=== PATIENT | female | born 1990 | race Caucasian/White ===

== ENCOUNTER → 2016-12-10 | Outpatient (CLI) | payer OTHER ==
[2016-12-10 11:41] LABS: CH 31.2; HCT 38.5 % (34.0-46.0); HDW 2.62; HGB 12.5 gm/dL (11.4-16.0); MCH 30.7 pg (25.0-35.0); MCHC 32.3 g/dL (31.0-37.0); Mean Platelet Volume 6.7; RBC 4.06 m/uL (3.80-5.40); WBC 8.9 k/uL (3.8-10.6)
== END | disposition home or self-care (01) ==
LOC: LABWHC1 10:02
PROVIDERS: ATTEND Obstetrics & Gynecology
DX: Z34.82 Encounter for supervision of other normal pregnancy, second trimester (principal)
CPT/HCPCS: 36415; 82950; 85027

== ENCOUNTER 2017-01-03 10:54 | Outpatient (CLI) | payer OTHER | END 2017-01-03 11:50 | disposition home or self-care (01) | LOC: FBPOP 10:54 | PROVIDERS: ATTEND Obstetrics & Gynecology | DX: O99.89 Other specified diseases and conditions complicating pregnancy, childbirth and the puerperium (principal); R10.84 Generalized abdominal pain; Z3A.30 30 weeks gestation of pregnancy | CPT/HCPCS: 59025; 84112; G0463; 99213 ==

== ENCOUNTER → 2017-01-22 | Outpatient (CLI) | payer OTHER ==
--- NOTE | 2017-01-22 14:38 | US ---
EXAMINATION TYPE: US OB anatomy transabd DATE OF EXAM: 01/22/2017 2:21 PM COMPARISON: US in PACS HISTORY: LGA TECHNIQUE: Transabdominal (TA) EXAM MEASUREMENTS: GESTATIONAL AGE / DATING Physician Established: (32 weeks/5 days) EDC: 03/14/2017 Dates by LMP: Dates by First Scan: (32 weeks/5 days) EDC: 03/14/2017 Dates by Current Scan for: (33 weeks/5 days) EDC: 03/07/2017 SURVEY IUP: Single PLACENTA: Fundal PREVIA: No previa ADIN: 16.9 cm Normal CERVICAL LENGTH (transabdominal: norm > 3.0cm): 3.2 cm BIOMETRY PRESENTATION: Vertex BPD: 8.7 cm 35 weeks / 0 days HC: 31.9 cm 35 weeks / 6 days AC: 29.7 cm 33 weeks / 5 days FL: 6.3 cm 32 weeks / 5 days ESTIMATED WEIGHT IN GRAMS: 2273 grams ESTIMATED WEIGHT IN LBS/OZS: 5 lbs. 0 oz. WEIGHT PERCENTAGE BASED ON ESTABLISHED DATE: 74 % HC/AC: 1.07 Normal FL/AC: 21 Normal HEART RATE: 131 bpm RHYTHM: Normal ANATOMY SEEN (within normal limits): Stomach Situs Nose / Lips Diaphragm Kidneys (bilateral) Bladder Cord Insert Three Vessel Cord Longitudinal Spine Transverse Spine ANATOMY SEEN (does not appear within normal limits): * Lateral Vent (< 1 cm) 1.2 cm * Cisterna Magna (< 1.1 cm) 1.2 cm ANATOMY NOT SEEN: * Cerebellum (varies with age) cm Choroid Plexus (bilateral) Midline Falx Cavus Septi Pellucidi Four Chamber Heart Outflow tracts: LVOT/RVOT Arms (bilateral) Legs (bilateral) IMPRESSION: Single, viable IUP/ Ventricles and Cisterna Magna dilated
== END ==
LOC: RADUSWWP 14:00
PROVIDERS: ATTEND Obstetrics & Gynecology
DX: O36.63X0 Maternal care for excessive fetal growth, third trimester, not applicable or unspecified (principal)
CPT/HCPCS: 76811

== ENCOUNTER 2017-02-17 03:55 | Inpatient (IN) | payer OTHER ==
[2017-02-17] MEDS ORDERED: TERBUTALINE 1 MG/ML VIAL SQ PRN (04:14)
[2017-02-17] MEDS ORDERED: LIDOCAINE 1% (PF) 10 MG/ML (30 ML SDV) SQ PRN (04:14)
[2017-02-17] MEDS ORDERED: METHYLERGONOVINE 0.2 MG/ML 1 ML AMP IM PRN (04:14)
[2017-02-17] MEDS ORDERED: AMPICILLIN 2,000 MG in SODIUM CHLORIDE 0.9% 100 ML IVPB STA (04:14)
[2017-02-17] MEDS ORDERED: CARBOPROST TROMETHAMINE 250 MCG/ML 1 ML AMP IM PRN (04:14)
[2017-02-17] MEDS ORDERED: OXYTOCIN 10 UNIT/ML 1 ML VIAL IM PRN (04:14)
[2017-02-17] MEDS ORDERED: LACTATED RINGERS 1,000 ML IV SCH ×2 (04:15)
[2017-02-17 04:24] LABS: Basophils % (A) 0 %; CH 30.3; CHCM 33.9; Eosinophils # (A) 0.2 k/uL (0-0.7); Eosinophils % (A) 2 %; HCT 37.2 % (34.0-46.0); HDW 2.84; HGB 12.7 gm/dL (11.4-16.0); Luc # (Auto) 0.19; Luc % (Auto) 2; Lymphocytes % (A) 18 %; MCH 30.6 pg (25.0-35.0); MCHC 34.1 g/dL (31.0-37.0); MCV 89.8 fL (80.0-100.0); Mean Platelet Volume 7.2; Monocytes # (A) 0.6 k/uL (0-1.0); Monocytes % (A) 5 %; Neutrophils # (A) 8.5 k/uL (1.3-7.7); Neutrophils % (A) 74 %; RBC 4.14 m/uL (3.80-5.40); RDW 13.2 % (11.5-15.5); WBC 11.5 k/uL (3.8-10.6); WBC (Perox) 11.69
[2017-02-17] MEDS ORDERED: SODIUM CHLORIDE 0.9% 100 ML BAG ONE (05:15)
[2017-02-17] MEDS ORDERED: BUPIVACAINE (PF) 0.25% 30 ML VIAL ONE (05:15)
[2017-02-17] MEDS ORDERED: fentaNYL (PF) 50 MCG/ML 5 ML AMP ONE (05:15)
[2017-02-17] MEDS ORDERED: ZOLPIDEM 5 MG TAB PO PRN (05:55)
[2017-02-17] MEDS ORDERED: WITCH HAZEL 1 EACH MED..PAD TOPICAL PRN (05:55)
[2017-02-17] MEDS ORDERED: HYDROCORTISONE 2.5% RECTAL CREAM 30 GM TUBE RECTAL PRN (05:55)
[2017-02-17] MEDS ORDERED: diphenhydrAMINE 50 MG CAP PO PRN (05:55)
[2017-02-17] MEDS ORDERED: ACETAMINOPHEN TAB 325 MG TAB PO PRN (05:55)
[2017-02-17] MEDS ORDERED: Acetaminophen-Codeine 300-30mg TAB PO PRN (05:55)
[2017-02-17] MEDS ORDERED: LANOLIN CREAM 5 GM TUBE TOPICAL PRN (05:55)
[2017-02-17] MEDS ORDERED: diphenhydrAMINE 50 MG/ML 1 ML VIAL IVP PRN ×2 (05:55)
[2017-02-17] MEDS ORDERED: diphenhydrAMINE 25 MG CAP PO PRN (05:55)
[2017-02-17] MEDS ORDERED: SIMETHICONE 80 MG CHEWABLE PO PRN (05:55)
[2017-02-17] MEDS ORDERED: BENZOCAINE/MENTHOL SPRAY 1 GM/SPRAY AEROSOL TOPICAL PRN (05:55)
--- NOTE | 2017-02-17 06:00 | P.HPOB ---
History of Present Illness H&P Date: 02/17/17 Chief Complaint: IUP 36 weeks SAMRA is a 26-year-old at 36 weeks gestation who arrives following spontaneous rupture membranes. She is dilated to 6 cm at presentation. She began having contractions earlier this evening they progressed to fully worse ultimately having spontaneous rupture membranes at about 345 morning. Fluid is noted be clear. Her course of incompetent by early diagnosis of chlamydia which was verified treated with resolution. She had some pain issues but generally speaking was unremarkable up until 34 weeks when an ultrasound showed mild dilation of lateral ventricles. She was sent to high risk and [facility] did evaluate her and repeated the ultrasound. The dilated ventricles were noted. However at that time they did not believe that she be delivered at a high-risk Center and she was returned to our care. Discussion with patient yesterday was done on possible delivery at high risk versus locally. However with her dilation to 6 she is not stable for any type of transfer therefore we'll plan to deliver here and notify pediatrics. Pertinent labs did include A+ blood type Rh antibody negative rubella immune, hepatitis B surface antigen and RPR were both negative. On physical exam vital signs are stable and afebrile. Heart regular, lungs clear, extremities without pain. heart tones were in the 130s 2050s are reactive. Assessment intrauterine at 36 weeks. Plan expect spontaneous vaginal delivery. Antibiotics have been initiated for group B strep Past Medical History Past Medical History: No Reported History History of Any Multi-Drug Resistant Organisms: None Reported Past Surgical History: No Surgical Hx Reported Past Anesthesia/Blood Transfusion Reactions: No Reported Reaction Past Psychological History: No Psychological Hx Reported Smoking Status: Never smoker Past Alcohol Use History: None Reported Past Drug Use History: None Reported Medications and Allergies Home Medications Medication Instructions Recorded Confirmed Type No Known Home Medications [No 08/16/16 01/03/17 History Known Home Medications] Allergies Allergy/AdvReac Type Severity Reaction Status Date / Time No Known Allergies Allergy Verified 02/17/17 04:13 Exam Osteopathic Statement: *. No significant issues noted on an osteopathic structural exam other than those noted in the History and Physical/Consult. - Vital Signs Vital signs: Vital Signs Temp Pulse Resp BP 02/17/17 04:13 97.0 F L 88 16 131/63 Intake and Output 02/16/17 02/16/17 02/17/17 14:59 22:59 06:59 Other: Weight 95.708 kg Patient Weight 02/17/17 06:59 Weight 95.708 kg - OBG Physical Exam Abdomen: bowel sounds normal, no diffuse tenderness, no bruit present, no guarding noted, no hepatomegaly, no splenomegaly, no mass Vulva: both: normal Vagina: normal moisture, no discharge Cervix: no lesion, no discharge Uterus: normal size, normal contour Results Result Diagrams: 02/17/17 04:15 Abnormal Lab Results - Last 24 Hours (Table) 02/17/17 Range/Units 04:15 WBC 11.5 H (3.8-10.6) k/uL Neutrophils # 8.5 H (1.3-7.7) k/uL
--- NOTE | 2017-02-17 06:02 | P.PROBDLV ---
Vaginal Delivery Note - . Vaginal Delivery Note: Patient progressed to complete and pushing with spontaneous vaginal delivery of a viable female over an intact perineum. Following delivery of the head , a nuchal cord 2 was noted and was noted to be relatively tight therefore patient was asked to stop pushing and nuchal cord was reduced 2. Once this was accomplished the remainder the baby was delivered and baby's mouth and nares were bulb suctioned. Baby was then placed on mother's abdomen where the umbilical cord was clamped cut usual fashion an nursery personnel was present to assume care. Placenta was then allowed to pulsate for 30 seconds and then was clamped and cut. Placenta was then delivered intact and Pitocin was added to the IV. scores were 8 and 9 at one and 5 minutes respectively and the weight is however pending. Both mother and baby however currently appear stable. Pediatrics will need to be notified of dilated ventricles for further workup.
[2017-02-17] MEDS ORDERED: AMPICILLIN 1,000 MG in SODIUM CHLORIDE 0.9% 50 ML IVPB SCH (08:16)
[2017-02-17] MEDS: SENNOSIDES-DOCUSATE SODIUM 1 EACH TAB PO SCH ×2 (09:36→20:06)
[2017-02-17] MEDS: IBUPROFEN 600 MG TAB PO PRN ×2 (13:25→23:48)
[2017-02-17] MEDS: Acetaminophen-Codeine 300-30mg TAB PO PRN ×2 (15:30→20:06)
[2017-02-18] MEDS: Acetaminophen-Codeine 300-30mg TAB PO PRN ×4 (02:11→20:42)
[2017-02-18] MEDS: IBUPROFEN 600 MG TAB PO PRN ×3 (05:55→22:49)
[2017-02-18] MEDS: SENNOSIDES-DOCUSATE SODIUM 1 EACH TAB PO SCH ×2 (10:49→19:24)
--- NOTE | 2017-02-18 17:01 | P.PNOBGVD ---
Subjective - Subjective Principal diagnosis: day 1 Interval history: Overall Paulette is doing very well. She is ambulating, voiding and she is tolerating her diet. She voices no complaint. Baby is in special care nursery. We'll continue to monitor patient for now. Vital signs are stable and afebrile. Heart regular, lungs clear, extremities without pain. Abdomen is soft uterus is firm. Assessment day 1. Plan discharge to home tomorrow [place]: in NICU (For evaluation of group B strep due to only 1 treatment during labor) Objective - Latest Vital Signs Latest vital signs: Vital Signs Temp Pulse Resp BP Pulse Ox 02/18/17 08:00 97.6 F 69 18 123/81 02/17/17 23:42 97.8 F 71 18 128/76 02/17/17 20:00 97.9 F 71 18 113/81 100 Intake and Output 02/18/17 02/18/17 02/18/17 06:59 14:59 22:59 Other: # Voids 2 - Exam Lungs: bilateral: normal Chest: Normal S1, Normal S2 Extremities: Present: normal Abdomen: Present: normal appearance, soft Uterus: Present: normal, firm
[2017-02-19] MEDS: Acetaminophen-Codeine 300-30mg TAB PO PRN ×2 (00:32→10:07)
[2017-02-19] MEDS: IBUPROFEN 600 MG TAB PO PRN ×2 (07:35→13:45)
[2017-02-19] MEDS: SENNOSIDES-DOCUSATE SODIUM 1 EACH TAB PO SCH (10:08)
[2017-02-19 16:47] VITALS: BP 121/67; PULSE 76; RESP 17; TEMP 97
--- NOTE | 2017-04-14 09:03 | P.DS ---
Providers Date of admission: 02/17/17 04:10 Expected date of discharge: 02/19/17 Attending physician: Paulo Triplett Primary care physician: Paulo Triplett Hospital Course: Beginning was doing very well day 2. She was involuting, voiding, tolerating her diet. She voices no complaints time of her discharge. She will stay for discharge on February 19. Vital signs are stable and afebrile. Heart regular, lungs clear, extremities without pain. Pain medication prescriptions were provided discharge instructions were thoroughly reviewed and all questions were answered for her prior to discharge. Follow-up with me in 6 weeks Plan - Discharge Summary New Discharge Prescriptions: Ibuprofen [Motrin] 600 mg PO Q6HR PRN #30 tab PRN Reason: Pain Discharge Medication List Ibuprofen [Motrin] 600 mg PO Q6HR PRN #30 tab 02/18/17 [Rx] Follow up Appointment(s)/Referral(s): Paulo Triplett DO [Primary Care Provider] - 6 Weeks Activity/Diet/Wound Care/Special Instructions: Heavy lifting, limit stairs and driving and pelvic rest. If any high temperatures, heavy bleeding, or severe pain call my office Discharge Disposition: HOME SELF-CARE
== END 2017-02-19 18:57 | disposition home or self-care (01) | DRG 775 ==
LOC: FBPOP 03:55 → 4FBP 04:10
PROVIDERS: ADMIT Obstetrics & Gynecology; ATTEND Obstetrics & Gynecology
PROC: 10E0XZZ Delivery of Products of Conception, External Approach (ICD-10-PCS; principal; 2017-02-17)
PROC: 3E0S3NZ Introduction of Analgesics, Hypnotics, Sedatives into Epidural Space, Percutaneous Approach (ICD-10-PCS; 2017-02-17)
DX: O60.14X0 Preterm labor third trimester with preterm delivery third trimester, not applicable or unspecified (principal); A56.8 Sexually transmitted chlamydial infection of other sites; O98.319 Other infections with a predominantly sexual mode of transmission complicating pregnancy, unspecified trimester; O69.1XX0 Labor and delivery complicated by cord around neck, with compression, not applicable or unspecified; O99.824 Streptococcus B carrier state complicating childbirth; Z3A.36 36 weeks gestation of pregnancy; Z37.0 Single live birth
CPT/HCPCS: 85025; 88307

== ENCOUNTER 2017-12-14 16:18 | Emergency (ER) | payer OTHER ==
[2017-12-14 16:38] VITALS: BP 149/72; PULSE 89; RESP 20; TEMP 98.8
[2017-12-14 17:03] LABS: Appearance,Urine Clear (Clear); Bilirubin,Urine Negative (Negative); Blood,Urine Negative (Negative); Color,Urine Yellow; Glucose,Urine (UA) Negative (Negative); Ketones,Urine Negative (Negative); Leukocyte Esterase,Urine Negative (Negative); Nitrite,Urine Negative (Negative); PH, Urine 5.5 (5.0-8.0); Protein,Urine Negative (Negative); Urobilinogen,Urine <2.0 mg/dL (<2.0)
--- NOTE | 2017-12-14 17:21 | ED ---
URI HPI - General Chief Complaint: Upper Respiratory Infection Stated Complaint: Cough, wants test Time Seen by Provider: 12/14/17 16:39 Source: patient, RN notes reviewed, old records reviewed Mode of arrival: ambulatory Limitations: no limitations - History of Present Illness Initial Comments: 27-year-old female presents today chief complaint of cough, congestion, upper respiratory symptoms. She's had these symptoms for a week. Patient reports her children had similar symptoms. She also reports she feels nauseated. She is wondering if she possibly be . Last menstrual cycle was at the end of October. - Related Data Previous Rx's Medication Instructions Recorded Ibuprofen [Motrin] 600 mg PO Q6HR PRN #30 tab 02/18/17 Benzonatate [Tessalon Perles] 100 mg PO TID PRN #15 capsule 12/14/17 Ondansetron Odt [Zofran Odt] 4 mg PO Q8HR PRN #12 tab 12/14/17 Allergies Allergy/AdvReac Type Severity Reaction Status Date / Time No Known Allergies Allergy Verified 12/14/17 16:38 Review of Systems ROS Statement: Those systems with pertinent positive or pertinent negative responses have been documented in the HPI. ROS Other: All systems not noted in ROS Statement are negative. Past Medical History Past Medical History: No Reported History History of Any Multi-Drug Resistant Organisms: None Reported Past Surgical History: No Surgical Hx Reported Past Anesthesia/Blood Transfusion Reactions: No Reported Reaction Past Psychological History: Depression Smoking Status: Never smoker Past Alcohol Use History: None Reported Past Drug Use History: None Reported General Exam - General Exam Comments Initial Comments: This is a 27 year old female, no distress Limitations: no limitations General appearance: alert, in no apparent distress Head exam: Present: atraumatic, normocephalic, normal inspection Eye exam: Present: normal appearance, PERRL, EOMI. Absent: scleral icterus, conjunctival injection, periorbital swelling ENT exam: Present: normal exam, mucous membranes moist Neck exam: Present: normal inspection. Absent: tenderness, meningismus, lymphadenopathy Respiratory exam: Present: normal lung sounds bilaterally. Absent: respiratory distress, wheezes, rales, rhonchi, stridor Cardiovascular Exam: Present: regular rate, normal rhythm, normal heart sounds. Absent: systolic murmur, diastolic murmur, rubs, gallop, clicks GI/Abdominal exam: Present: soft, normal bowel sounds. Absent: distended, tenderness, guarding, rebound, rigid Extremities exam: Present: normal inspection, full ROM, normal capillary refill. Absent: tenderness, pedal edema, joint swelling, calf tenderness Back exam: Present: normal inspection Neurological exam: Present: alert, oriented X3, CN II-XII intact Psychiatric exam: Present: normal affect, normal mood Skin exam: Present: warm, dry, intact, normal color. Absent: rash Course Vital Signs 12/14/17 16:35 Temperature 98.8 F Pulse Rate 89 Respiratory 20 Rate Blood Pressure 149/72 O2 Sat by Pulse 98 Oximetry Medical Decision Making - Medical Decision Making 27-year-old female presents today chief complaint of cough, congestion, upper respiratory symptoms. She's had these symptoms for a week. Patient reports her children had similar symptoms. Which is also concerned for chance of so she feels nauseated. Patient should urine analysis is negative for infection. Negative hCG. Patient was informed of this. After HCG negative she was sent to go to CXR. Patient refused the chest x-ray. I discussed I can treat the patient for like Lee respiratory viral syndrome. Will be starting on Tessalon Perles and nausea medicine. PatientWe're just leave to get to her daughter. - Lab Data Lab Results 12/14/17 12/14/17 Range/Units 16:50 16:50 Urine Color Yellow Urine Appearance Clear (Clear) Urine pH 5.5 (5.0-8.0) Ur Specific [place] 1.020 (1.001-1.035) Urine Protein Negative (Negative) Urine Glucose (UA) Negative (Negative) Urine Ketones Negative (Negative) Urine Blood Negative (Negative) Urine Nitrite Negative (Negative) Urine Bilirubin Negative (Negative) Urine Urobilinogen <2.0 (<2.0) mg/dL Ur Leukocyte Esterase Negative (Negative) Urine HCG, Qual Not Detected (Not Detectd) Disposition Clinical Impression: Upper respiratory infection Disposition: HOME SELF-CARE Condition: Good Instructions: Upper Respiratory Infection (ED) Additional Instructions: Resident Motrin Tylenol. Recommend take decongestant medication such as Mucinex. The continues with cough pills and nausea medicine as needed. Return to emergency department if any alarming signs or symptoms occur. Prescriptions: Benzonatate [Tessalon Perles] 100 mg PO TID PRN #15 capsule PRN Reason: Cough Ondansetron Odt [Zofran Odt] 4 mg PO Q8HR PRN #12 tab PRN Reason: Nausea Referrals: None,Stated [Primary Care Provider] - 1-2 days Time of Disposition: 17:26
== END 2017-12-14 17:32 | disposition home or self-care (01) ==
LOC: EC 16:18
DX: J06.9 Acute upper respiratory infection, unspecified (principal); Z32.02 Encounter for pregnancy test, result negative; Z53.29 Procedure and treatment not carried out because of patient's decision for other reasons
CPT/HCPCS: 81003; 81025; 99284

== ENCOUNTER 2018-01-28 18:29 | Emergency (ER) | payer OTHER ==
[2018-01-28] MEDS ORDERED: SODIUM CHLORIDE 0.9% 2,000 ML IV ONE (19:22)
[2018-01-28] MEDS ORDERED: ACETAMINOPHEN TAB 500 MG TAB PO STA (19:23)
[2018-01-28 19:56] LABS: Basophils # (A) 0.1 k/uL (0-0.2); Basophils % (A) 1 %; Eosinophils # (A) 0.8 k/uL (0-0.7); Eosinophils % (A) 7 %; HCT 37.9 % (34.0-46.0); HGB 12.8 gm/dL (11.4-16.0); Lymphocytes # (A) 2.9 k/uL (1.0-4.8); Lymphocytes % (A) 26 %; MCH 29.4 pg (25.0-35.0); MCHC 33.7 g/dL (31.0-37.0); MCV 87.4 fL (80.0-100.0); Mean Platelet Volume 7.3; Monocytes # (A) 0.4 k/uL (0-1.0); Monocytes % (A) 4 %; Neutrophils # (A) 6.7 k/uL (1.3-7.7); Neutrophils % (A) 61 %; Platelet Count 238 k/uL (150-450); RBC 4.34 m/uL (3.80-5.40); RDW 12.9 % (11.5-15.5)
[2018-01-28 20:10] LABS: Appearance,Urine Cloudy (Clear); Bacteria,Urine Rare /hpf; Bilirubin,Urine Negative (Negative); Blood,Urine Negative (Negative); Color,Urine Yellow; Glucose,Urine (UA) Negative (Negative); Ketones,Urine Negative (Negative); Leukocyte Esterase,Urine Trace (Negative); Mucus,Urine Rare /hpf; Nitrite,Urine Negative (Negative); PH, Urine 5.5 (5.0-8.0); Protein,Urine Negative (Negative); RBC,Urine 1 /hpf (0-5); Specific Gravity,Urine 1.016 (1.001-1.035); Squamous Epithelial Cell,Urine 7 /hpf (0-4); Urobilinogen,Urine <2.0 mg/dL (<2.0); WBC,Urine 2 /hpf (0-5)
[2018-01-28 20:11] LABS: Anion Gap 7 mmol/L; Blood Urea Nitrogen 16 mg/dL (7-17); Calcium 9.5 mg/dL (8.4-10.2); Carbon Dioxide 23 mmol/L (22-30); Chloride 105 mmol/L (98-107); Glucose 103 mg/dL (74-99); Potassium 3.8 mmol/L (3.5-5.1); Sodium 135 mmol/L (137-145)
--- NOTE | 2018-01-28 20:23 | ED ---
Abdominal Pain HPI - General Chief Complaint: Abdominal Pain Stated Complaint: 10 weeks & cramping Time Seen by Provider: 01/28/18 19:05 Source: patient Mode of arrival: ambulatory Limitations: no limitations - History of Present Illness Initial Comments: The patient is a female who presents with a chief complaint of abdominal pain. The patient is about 10 weeks by last menstrual period. The patient describes her pain as crampy in nature. She states it feels like period cramps. She cannot identify any inciting incidences. There are no aggravating or alleviating factors. Timing is constant. The patient denies any dysuria, vaginal bleeding, or vaginal discharge. Patient does endorse some nausea however she states with her last pregnancies she had morning sickness and this is similar. - Related Data Home Medications Medication Instructions Recorded Confirmed Pnv,Calcium 72/Iron/Folic Acid 1 tab PO DAILY 01/28/18 01/28/18 [ Plus Tablet] Allergies Allergy/AdvReac Type Severity Reaction Status Date / Time No Known Allergies Allergy Verified 01/28/18 19:15 Review of Systems ROS Statement: Those systems with pertinent positive or pertinent negative responses have been documented in the HPI. ROS Other: All systems not noted in ROS Statement are negative. Gastrointestinal: Reports: abdominal pain, nausea Past Medical History Past Medical History: No Reported History History of Any Multi-Drug Resistant Organisms: None Reported Past Surgical History: No Surgical Hx Reported Past Anesthesia/Blood Transfusion Reactions: No Reported Reaction Past Psychological History: Depression Smoking Status: Never smoker Past Alcohol Use History: None Reported Past Drug Use History: None Reported General Exam Limitations: no limitations General appearance: alert, in no apparent distress Head exam: Present: atraumatic, normocephalic Eye exam: Present: normal appearance, PERRL ENT exam: Present: mucous membranes moist Neck exam: Present: normal inspection Respiratory exam: Present: normal lung sounds bilaterally. Absent: respiratory distress, wheezes Cardiovascular Exam: Present: regular rate, normal rhythm GI/Abdominal exam: Present: soft, tenderness. Absent: distended Rectal exam: Present: deferred (Patient has tenderness in the lower abdomen with palpation, patient is more tender on the right than on the left) Extremities exam: Present: normal inspection Back exam: Present: normal inspection Neurological exam: Present: alert, oriented X3 Psychiatric exam: Present: normal affect, normal mood Course Vital Signs 01/28/18 18:42 Temperature 97.1 F L Pulse Rate 62 Respiratory 20 Rate Blood Pressure 129/80 O2 Sat by Pulse 100 Oximetry Medical Decision Making - Medical Decision Making Patient is a female who presents with the chief complaint cramping abdominal pain. The patient is 7 weeks by last menstrual period. Patient follows up with Dr. Rosas however she has not had her initial OB ultrasound yet. On initial evaluation, vital signs are stable, patient is in no acute distress. Patient will be evaluated basic labs, urinalysis, and transvaginal ultrasound. 9:18 p.m. Evaluation of this patient is unremarkable. Ultrasound evaluation shows a single intrauterine at 10 weeks and 3 days. There is a very small subchorionic hemorrhage. Patient was informed of these results, she was instructed to follow up with her BDR, primary care in 1-2 days. She is further instructed to return to the emergency department if her symptoms worsen or change. Patient was instructed on using Tylenol for pain. After 2 L of IV fluid, she feels improved in the emergency department. Patient was further advised to stay well-hydrated. - Lab Data Result diagrams: 01/28/18 19:40 01/28/18 19:40 Lab Results 01/28/18 01/28/18 01/28/18 Range/Units 19:40 19:40 19:40 WBC 11.0 H (3.8-10.6) k/uL RBC 4.34 (3.80-5.40) m/uL Hgb 12.8 (11.4-16.0) gm/dL Hct 37.9 (34.0-46.0) % MCV 87.4 (80.0-100.0) fL MCH 29.4 (25.0-35.0) pg MCHC 33.7 (31.0-37.0) g/dL RDW 12.9 (11.5-15.5) % Plt Count 238 (150-450) k/uL Neutrophils % 61 % Lymphocytes % 26 % Monocytes % 4 % Eosinophils % 7 % Basophils % 1 % Neutrophils # 6.7 (1.3-7.7) k/uL Lymphocytes # 2.9 (1.0-4.8) k/uL Monocytes # 0.4 (0-1.0) k/uL Eosinophils # 0.8 H (0-0.7) k/uL Basophils # 0.1 (0-0.2) k/uL Sodium 135 L (137-145) mmol/L Potassium 3.8 (3.5-5.1) mmol/L Chloride 105 (98-107) mmol/L Carbon Dioxide 23 (22-30) mmol/L Anion Gap 7 mmol/L BUN 16 (7-17) mg/dL Creatinine 0.56 (0.52-1.04) mg/dL Est GFR (CKD-EPI)AfAm >90 (>60 ml/min/1.73 sqM) Est GFR (CKD-EPI)NonAf >90 (>60 ml/min/1.73 sqM) Glucose 103 H (74-99) mg/dL Calcium 9.5 (8.4-10.2) mg/dL Urine Color Yellow Urine Appearance Cloudy H (Clear) Urine pH 5.5 (5.0-8.0) Ur Specific [place] 1.016 (1.001-1.035) Urine Protein Negative (Negative) Urine Glucose (UA) Negative (Negative) Urine Ketones Negative (Negative) Urine Blood Negative (Negative) Urine Nitrite Negative (Negative) Urine Bilirubin Negative (Negative) Urine Urobilinogen <2.0 (<2.0) mg/dL Ur Leukocyte Esterase Trace H (Negative) Urine RBC 1 (0-5) /hpf Urine WBC 2 (0-5) /hpf Ur Squamous Epith Cells 7 H (0-4) /hpf Urine Bacteria Rare H (None) /hpf Urine Mucus Rare H (None) /hpf Disposition Clinical Impression: Abdominal cramping affecting Disposition: HOME SELF-CARE Condition: Good Instructions: Abdominal Pain in (ED) Referrals: Paulo Triplett DO [Doctor of Osteopathic Medicine] - 1-2 days Florentin Coleman MD [Medical Doctor] - 1-2 days
--- NOTE | 2018-01-28 21:02 | US ---
EXAMINATION TYPE: US OB <= 14 wk fetus DATE OF EXAM: 01/28/2018 COMPARISON: NONE CLINICAL HISTORY: Cramping. EXAM PERFORMED: Transabdominal (TA) EXAM MEASUREMENTS: GESTATIONAL AGE / DATING Physician Established: (10 weeks/3 days) EDC: 08/23/2018 Dates by LMP: (10 weeks/3 days) EDC: 08/23/2018 Dates by First Scan: No previous this is first scan Dates by Current Scan for: (10 weeks/0 days) EDC: 08/26/2018 MATERNAL ANATOMY Uterus: 13.2 x 7.8 x 9.6 cm Right Ovary: 3.6 x 1.5 x 2.4 cm Left Ovary: 2.6 x 1.2 x 1.8 cm Post CDS / Adnexa: wnl Presence of free fluid: No Presence of corpus luteal cyst: No Presence of subchorionic bleed: Yes, to the right of the gestational sac measuring 0.8 x 0.3 x 0.4 cm GESTATION / SURVEY CRL: 3.1cm (10 weeks/0 days) Yolk Sac (normal less than 6mm): 3 mm Heart Rate: 172 bpm Rhythm: Normal IUP: Viable IUP Date of LMP: 11/16/2017 Beta HcG (if available): Not available at this time Viable IUP, measurements consistent with dates. IMPRESSION: Small subchorionic hemorrhage. This measures just 8 x 3 mm. Living single fetus with gestational age of 10 weeks.
[2018-01-28 21:29] VITALS: BP 122/72; PULSE 78; RESP 16; TEMP 98
== END 2018-01-28 21:34 | disposition home or self-care (01) ==
LOC: EC 18:29
DX: O99.89 Other specified diseases and conditions complicating pregnancy, childbirth and the puerperium (principal); R10.9 Unspecified abdominal pain; R11.0 Nausea; O20.9 Hemorrhage in early pregnancy, unspecified; Z3A.10 10 weeks gestation of pregnancy
CPT/HCPCS: 36415; 76801; 80048; 81001; 84702; 85025; 96360; 99284

== ENCOUNTER → 2018-05-27 | Outpatient (CLI) | payer OTHER ==
[2018-05-27 11:01] LABS: HCT 38.5 % (34.0-46.0); HGB 12.7 gm/dL (11.4-16.0); MCH 31.2 pg (25.0-35.0); MCV 94.5 fL (80.0-100.0); Platelet Count 243 k/uL (150-450); RBC 4.07 m/uL (3.80-5.40); RDW 13.9 % (11.5-15.5); WBC 8.2 k/uL (3.8-10.6)
== END | disposition home or self-care (01) ==
LOC: LABWHC1 09:34
PROVIDERS: ATTEND Obstetrics & Gynecology
DX: Z34.82 Encounter for supervision of other normal pregnancy, second trimester (principal); Z3A.00 Weeks of gestation of pregnancy not specified
CPT/HCPCS: 36415; 82950; 85027

== ENCOUNTER 2018-06-10 17:38 | Outpatient (CLI) | payer OTHER ==
[2018-06-10 18:57] VITALS: BP 128/74; PULSE 90; RESP 16; TEMP 97
--- NOTE | 2018-06-11 07:26 | P.MSEPDOC ---
Presenting Problems - Arrival Data Date of Arrival on Unit: 06/10/18 Time of Arrival on Unit: 17:39 Mode of Transport: Ambulatory - Complaint OB-Reason for Admission/Chief Complaint: Decreased Movement Medical History - Information : 4 Para: 3 Term: 1 : 2 Abortions: Spontaneous or Elective: 0 Number of Living Children: 3 - Gestational Age Gestational Age by HANS (wks/days): 29 Weeks and 4 Days Review of Systems - Review of Systems Constitutional: No problems Breast: No problems ENT: No problems Cardiovascular: No problems Respiratory: No problems Gastrointestinal: No problems Genitourinary: No problems Musculoskeletal: No problems Neurological: No problems Skin: No problems Comment: pt reports wheezing during activity, but not having any wheezing now Vital Signs - Temperature Temperature: 97.0 F Temperature Source: Tympanic - Pulse Right Brachial Pulse Rate: 90 Pulse Assessment Method: Automatic Cuff - Respirations Respiratory Rate: 16 Oxygen Delivery Method: Room Air - Blood Pressure Right Arm Blood Pressure: 128/74 Blood Pressure Mean: 92 Blood Pressure Source: Automatic Cuff Medical Screen Scoring (Pre) - Cervical Exam Dilation: Exam Deferred Effacement: Exam Deferred Membranes: Intact - Uterine Contractions Frequency: N/A Duration: N/A Intensity: N/A - Maternal Vital Signs Maternal Temperature: N/A Maternal Blood Pressure: N/A Signs of Preeclampsia: N/A Maternal Respirations: N/A - Pain Assessment Pain Scale Used: Numeric (1 - 10) Pain Intensity: 0 Pain Management Goal: 0 - Maternal Trauma Maternal Trauma: N/A - Assessment Baseline FHR: 125 Heart Rate - NICHD Category: Category I (Normal) = 0 NST: Reactive Position: N/A Station: N/A - Total Score Total Score (Pre): 0 - Level of Risk Level of Risk: N/A Physician Notification (Pre) - Physician Notified Physician Notified Date: 06/10/18 Physician Notified Time: 18:29 Physician/Practitioner Notifed:: Dr. Rodriguez Spoke With: Dr. Rodriguez New Order Received: Yes - Notification Comment Comment: d/c home Disposition - Disposition OB Disposition: Discharge to home Discharge Date: 06/10/18 Discharge Time: 18:33 I agree with the RN Medical Screening Exam: Yes Risk & Benefit of care provided described in d/c instruction: Yes Diagnosis: DECREASED MOVEMENTS, THIRD TRIMESTER, FETUS 1
== END 2018-06-10 18:33 | disposition home or self-care (01) ==
LOC: FBPOP 17:38
PROVIDERS: ATTEND Obstetrics & Gynecology
DX: O36.8131 Decreased fetal movements, third trimester, fetus 1 (principal); Z3A.29 29 weeks gestation of pregnancy
CPT/HCPCS: 59025; G0463; 99213

== ENCOUNTER 2018-07-28 18:43 | Outpatient (CLI) | payer OTHER ==
[2018-07-28 20:38] VITALS: BP 129/77; PULSE 93; RESP 16; TEMP 97.8
--- NOTE | 2018-08-07 09:17 | P.MSEPDOC ---
Presenting Problems - Arrival Data Date of Arrival on Unit: 07/28/18 Time of Arrival on Unit: 18:43 Mode of Transport: Ambulatory - Complaint OB-Reason for Admission/Chief Complaint: Possible Onset of Labor Medical History - Information : 4 Para: 3 Term: 1 : 2 Abortions: Spontaneous or Elective: 0 Number of Living Children: 2 - Gestational Age Gestational Age by HANS (wks/days): 37 Weeks and 3 Days - History Complications: GBS+ Review of Systems - Review of Systems Constitutional: No problems Breast: No problems ENT: No problems Cardiovascular: No problems Respiratory: No problems Gastrointestinal: No problems Genitourinary: No problems Musculoskeletal: No problems Neurological: No problems Skin: No problems Vital Signs - Temperature Temperature: 97.8 F Temperature Source: Oral - Pulse Right Brachial Pulse Rate: 93 Pulse Assessment Method: Automatic Cuff - Respirations Respiratory Rate: 16 Oxygen Delivery Method: Room Air O2 Sat by Pulse Oximetry: 97 - Blood Pressure Right Arm Blood Pressure: 129/77 Blood Pressure Mean: 94 Blood Pressure Source: Automatic Cuff Medical Screen Scoring (Pre) - Cervical Exam Dilation: 4-7 cm = 2 Membranes: Intact - Uterine Contractions Frequency: > or = 36 weeks =2 - Maternal Vital Signs Maternal Temperature: N/A Maternal Blood Pressure: N/A Signs of Preeclampsia: N/A Maternal Respirations: N/A - Pain Assessment Pain Location and Character: Abdomen Pain Scale Used: Numeric (1 - 10) Pain Intensity: 3 Pain Description: Cramping Pain Frequency: Intermittent Pain Duration Units: Minutes Pain Behavior: None Exhibited Pain Aggravating Factors: Contractions - Maternal Trauma Maternal Trauma: N/A - Assessment Baseline FHR: 135 Heart Rate - NICHD Category: Category I (Normal) = 0 NST: Reactive Position: N/A Station: N/A - Total Score Total Score (Pre): 4 - Level of Risk Level of Risk: Low (0-5) Physician Notification (Pre) - Physician Notified Physician Notified Date: 07/28/18 Physician Notified Time: 20:23 Physician/Practitioner Notifed:: Dr. Triplett Spoke With: Dr. Triplett New Order Received: Yes - Notification Comment Comment: Dr. Triplett called and given report on pt in triage. Pt c/o. VS WNL. Reactive nst. Vag exam of 4/50/-2 with minimal change. Orders recieved to either keep pt for one more hour and recheck or to allow pt to be d/c to home pt prefers. Disposition - Disposition OB Disposition: Discharge to home Discharge Date: 07/28/18 Discharge Time: 20:30 I agree with the RN Medical Screening Exam: Yes Risk & Benefit of care provided described in d/c instruction: Yes Diagnosis: FALSE LABOR AT OR AFTER 37 COMPLETED WEEKS OF GESTATION
== END 2018-07-28 20:30 | disposition home or self-care (01) ==
LOC: FBPOP 18:43
PROVIDERS: ATTEND Obstetrics & Gynecology
DX: O47.1 False labor at or after 37 completed weeks of gestation (principal); Z3A.37 37 weeks gestation of pregnancy
CPT/HCPCS: 59025; G0463; 99213

== ENCOUNTER 2018-08-13 16:59 | Outpatient (CLI) | payer OTHER ==
[2018-08-13 17:14] VITALS: BP 109/68; PULSE 96; RESP 16; TEMP 98
--- NOTE | 2018-08-14 12:16 | P.MSEPDOC ---
Presenting Problems - Arrival Data Date of Arrival on Unit: 08/13/18 Time of Arrival on Unit: 17:45 Mode of Transport: Ambulatory - Complaint OB-Reason for Admission/Chief Complaint: Decreased Movement Medical History - Information : 4 Para: 3 Term: 1 : 2 Abortions: Spontaneous or Elective: 0 Number of Living Children: 3 - Gestational Age Gestational Age by HANS (wks/days): 38 Weeks and 4 Days Review of Systems - Review of Systems Constitutional: No problems Breast: No problems ENT: No problems Cardiovascular: No problems Respiratory: No problems Gastrointestinal: No problems Genitourinary: No problems Musculoskeletal: No problems Neurological: No problems Skin: No problems Vital Signs - Temperature Temperature: 98 F Temperature Source: Temporal Artery Scan - Pulse Right Brachial Pulse Rate: 96 Pulse Assessment Method: Automatic Cuff - Respirations Respiratory Rate: 16 Oxygen Delivery Method: Room Air - Blood Pressure Right Arm Blood Pressure: 109/68 Blood Pressure Mean: 81 Blood Pressure Source: Automatic Cuff Medical Screen Scoring (Pre) - Uterine Contractions Frequency: > or = 36 weeks =2 Duration: > 40 seconds = 2 Intensity: N/A - Maternal Vital Signs Maternal Temperature: N/A Maternal Blood Pressure: N/A Signs of Preeclampsia: N/A Maternal Respirations: N/A - Pain Assessment Pain Scale Used: Numeric (1 - 10) Pain Intensity: 0 - Maternal Trauma Maternal Trauma: N/A - Assessment Baseline FHR: 120 Heart Rate - NICHD Category: Category I (Normal) = 0 NST: Reactive Position: N/A Station: N/A - Total Score Total Score (Pre): 4 - Level of Risk Level of Risk: Low (0-5) Medical Screen Scoring (Post) - Cervical Exam Dilation: 4-7 cm = 2 Effacement: More than 50% = 2 Membranes: Intact - Uterine Contractions Frequency: > 5 minutes apart = 1 Duration: > 40 seconds = 2 - Total Score Total Score (Post): 7 - Post Treatment Level of Risk Post Treatment Level of Risk: Medium (6-9) Physician Notification (Post) - Physician Notified Physician Notified Date: 08/13/18 Physician Notified Time: 17:30 Spoke With: Bryson Hassan Order Received: Yes (discharge with instruction) - Notification Comment Comment: scheduled for induction on Wednesday Disposition - Disposition OB Disposition: Discharge to home, Written follow up instructions reviewed Discharge Date: 08/13/18 Discharge Time: 17:30 I agree with the RN Medical Screening Exam: Yes Risk & Benefit of care provided described in d/c instruction: Yes Diagnosis: DECREASED MOVEMENTS, THIRD TRIMESTER, UNSP
== END 2018-08-13 17:30 | disposition home or self-care (01) ==
LOC: FBPOP 16:59
PROVIDERS: ATTEND Obstetrics & Gynecology
DX: O36.8130 Decreased fetal movements, third trimester, not applicable or unspecified (principal); Z3A.38 38 weeks gestation of pregnancy
CPT/HCPCS: 59025; G0463; 99213

== ENCOUNTER 2018-08-16 06:00 | Inpatient (IN) | payer OTHER ==
[2018-08-16] MEDS ORDERED: LIDOCAINE 0.5% (PF) 5 MG/ML (50 ML SDV) SQ PRN (06:44)
[2018-08-16] MEDS ORDERED: CARBOPROST TROMETHAMINE 250 MCG/ML 1 ML AMP IM PRN (06:44)
[2018-08-16] MEDS ORDERED: AMPICILLIN 2,000 MG in SODIUM CHLORIDE 0.9% 100 ML IVPB STA (06:44)
[2018-08-16] MEDS ORDERED: OXYTOCIN 10 UNIT/ML 1 ML VIAL IM PRN (06:44)
[2018-08-16] MEDS ORDERED: TERBUTALINE 1 MG/ML VIAL SQ PRN (06:44)
[2018-08-16] MEDS ORDERED: METHYLERGONOVINE 0.2 MG/ML 1 ML AMP IM PRN (06:44)
[2018-08-16] MEDS ORDERED: OXYTOCIN 20 UNITS/1000 ML NS 1,000 ML IV SCH (06:45)
[2018-08-16 06:50] VITALS: BMI 33.5
[2018-08-16] MEDS: LACTATED RINGERS 1,000 ML IV SCH ×2 (06:55→10:33)
[2018-08-16 07:10] LABS: Basophils # (A) 0.1 k/uL (0-0.2); Basophils % (A) 1 %; Eosinophils # (A) 0.6 k/uL (0-0.7); Eosinophils % (A) 5 %; HCT 37.4 % (34.0-46.0); Hypochromasia Slight; Lymphocytes # (A) 2.2 k/uL (1.0-4.8); Lymphocytes % (A) 20 %; MCH 28.5 pg (25.0-35.0); MCHC 32.2 g/dL (31.0-37.0); MCV 88.5 fL (80.0-100.0); Monocytes # (A) 0.5 k/uL (0-1.0); Monocytes % (A) 5 %; Neutrophils # (A) 7.4 k/uL (1.3-7.7); Neutrophils % (A) 68 %; Platelet Count 266 k/uL (150-450); RBC 4.22 m/uL (3.80-5.40); RDW 14.4 % (11.5-15.5); WBC 10.9 k/uL (3.8-10.6)
[2018-08-16] MEDS: AMPICILLIN 1,000 MG in SODIUM CHLORIDE 0.9% 50 ML IVPB SCH ×3 (11:02→20:43)
[2018-08-16] MEDS ORDERED: ROPIVACAINE 100 MG, fentaNYL (PF) 200 MCG in SODIUM CHLORIDE 0.9% 76 ML EPIDURAL ONE (11:41)
[2018-08-16] MEDS ORDERED: SIMETHICONE 80 MG CHEWABLE PO PRN (13:26)
[2018-08-16] MEDS ORDERED: WITCH HAZEL 1 EACH MED..PAD TOPICAL PRN (13:26)
[2018-08-16] MEDS ORDERED: HYDROCORTISONE 2.5% RECTAL CREAM 30 GM TUBE RECTAL PRN (13:26)
[2018-08-16] MEDS ORDERED: diphenhydrAMINE 25 MG CAP PO PRN (13:26)
[2018-08-16] MEDS ORDERED: diphenhydrAMINE 50 MG/ML 1 ML VIAL IVP PRN ×2 (13:26)
[2018-08-16] MEDS ORDERED: diphenhydrAMINE 50 MG CAP PO PRN (13:26)
[2018-08-16] MEDS ORDERED: LANOLIN CREAM 5 GM TUBE TOPICAL PRN (13:26)
[2018-08-16] MEDS ORDERED: ZOLPIDEM 5 MG TAB PO PRN (13:26)
[2018-08-16] MEDS ORDERED: BENZOCAINE/MENTHOL SPRAY 1 GM/SPRAY AEROSOL TOPICAL PRN (13:26)
--- NOTE | 2018-08-16 13:29 | P.HPOB ---
History of Present Illness H&P Date: 08/16/18 Chief Complaint: Induction of labor Patient is a 27 0 at 39 weeks gestation arise for induction of labor. She does have advanced cervical dilatation and she is dilated to 5 cm this morning. We have waited on rupturing her membranes that she can get 2 doses of antibiotics prior to delivery due to her group B strep status. Her Precis course was, complicated by Chlamydia early in the which was treated and verification of cure was done. Otherwise she has had no significant problems and she is feeling well at this time. She was followed with maternal medicine due to an EIF on ultrasound but no treatments have been recommended. heart tones were in the 130s and reactive this morning and she voices no complaints. Pitocin augmentation of labor will be done and expectation for artificial rupture membranes once second dose of antibiotics completed. Past Medical History Past Medical History: No Reported History History of Any Multi-Drug Resistant Organisms: None Reported Past Surgical History: Adenoidectomy, Tonsillectomy Past Anesthesia/Blood Transfusion Reactions: No Reported Reaction Past Psychological History: Depression Smoking Status: Former smoker Past Alcohol Use History: None Reported Past Drug Use History: None Reported - Past Family History Father Family Medical History: No Reported History Medications and Allergies Home Medications Medication Instructions Recorded Confirmed Type Pnv,Calcium 72/Iron/Folic Acid 1 tab PO DAILY 01/28/18 08/16/18 History [ Plus Tablet] Allergies Allergy/AdvReac Type Severity Reaction Status Date / Time No Known Allergies Allergy Verified 08/16/18 06:44 Exam Osteopathic Statement: *. No significant issues noted on an osteopathic structural exam other than those noted in the History and Physical/Consult. Vital Signs Temp Pulse Resp BP 08/16/18 06:45 97.3 F L 111 H 16 127/69 Intake and Output 08/15/18 08/16/18 08/16/18 22:59 06:59 14:59 Other: Weight 108.862 kg Results Result Diagrams: 08/16/18 06:50 Abnormal Lab Results - Last 24 Hours (Table) 08/16/18 Range/Units 06:50 WBC 10.9 H (3.8-10.6) k/uL
--- NOTE | 2018-08-16 13:29 | P.PROBDLV ---
Vaginal Delivery Note - . Vaginal Delivery Note: Patient progressed complete and pushed with spontaneous vaginal delivery of a viable female over an intact perineum. Falling deliver the head anterior posterior shoulders were delivered gentle downward and upward traction followed by the remainder the baby. Mouth and nares were then bulb suctioned and baby was placed on mother's abdomen where the umbilical cord was clamped and cut in usual fashion. Nursery personnel was then present to assume care. Ascent was then delivered intact and Pitocin was added to the IV. scores and weight are pending. Both mother and baby however, appear stable.
[2018-08-16] MEDS: IBUPROFEN 600 MG TAB PO PRN (16:19)
[2018-08-16] MEDS: ACETAMINOPHEN TAB 325 MG TAB PO PRN (20:44)
[2018-08-16] MEDS: SENNOSIDES-DOCUSATE SODIUM 1 EACH TAB PO SCH (20:45)
[2018-08-17] MEDS: IBUPROFEN 600 MG TAB PO PRN ×4 (01:22→21:35)
[2018-08-17] MEDS: ACETAMINOPHEN TAB 325 MG TAB PO PRN ×3 (05:29→18:45)
[2018-08-17] MEDS: SENNOSIDES-DOCUSATE SODIUM 1 EACH TAB PO SCH ×2 (08:37→21:36)
--- NOTE | 2018-08-17 10:16 | P.PNOBGVD ---
Subjective - Subjective Principal diagnosis: post day 1 Interval history: overall doing well. c/o increase in pelvic pain over yesterday but is ambulating. discussed r/b of narcotics lashawn with and we are going to try and avoid this if possible. Patient reports: Reports appetite normal, Reports voiding normally, Reports pain well controlled, Reports ambulating normally [place]: doing well Objective - Latest Vital Signs Latest vital signs: Vital Signs Temp Pulse Resp BP 08/17/18 08:00 98.7 F 79 16 124/72 08/17/18 03:37 98.1 F 56 L 18 130/75 08/17/18 00:00 98.1 F 77 18 124/72 08/16/18 20:00 98.7 F 80 18 124/80 08/16/18 15:24 87 18 115/58 08/16/18 14:54 106 H 16 134/63 08/16/18 14:24 71 16 115/58 08/16/18 14:09 97.0 F L 78 16 119/76 08/16/18 13:54 88 16 109/59 08/16/18 13:39 82 16 106/58 08/16/18 13:24 89 18 121/67 Intake and Output 08/16/18 08/17/18 08/17/18 22:59 06:59 14:59 Intake Total 970 Balance 970 Intake: Oral 970 Other: Voiding Method Toilet Toilet # Voids 1 2 1 - Exam Lungs: bilateral: normal Chest: Normal S1, Normal S2 Extremities: Present: normal Abdomen: Present: normal appearance, soft Uterus: Present: normal, firm
[2018-08-17 16:24] VITALS: RESP 16
[2018-08-18] MEDS: ACETAMINOPHEN TAB 325 MG TAB PO PRN ×3 (02:11→14:56)
[2018-08-18] MEDS: IBUPROFEN 600 MG TAB PO PRN ×2 (05:11→11:45)
[2018-08-18] MEDS: SENNOSIDES-DOCUSATE SODIUM 1 EACH TAB PO SCH (08:35)
[2018-08-18 09:22] VITALS: BP 122/67; PULSE 80; TEMP 99
--- NOTE | 2018-08-18 09:25 | P.DS ---
Providers Date of admission: 08/16/18 06:34 Expected date of discharge: 08/18/18 Attending physician: Paulo Triplett Primary care physician: Stated None Hospital Course: In is seen and evaluated day 2. She continues to have pelvic pain that is sort of generalized across the pelvis. She relates the pain began shortly after epidural was placed and was present prior to her even beginning to push. There is no other evidence for abnormality. No sign of fracture, or separation of pubic bone although this is still a possibility. Since there is limited treatment options for those anyway will plan to discharge her to home today and she will follow up with me in 1-2 weeks if the pain persists in 6 weeks if it resolves. Prescription for Motrin has been provided. All the questions were answered for her and discharge instruction reviewed. Vital signs are stable and afebrile. Heart regular, lungs clear, extremities without pain. Abdomen is soft uterus is firm and lochia is reported be light. Assessment day 2. Plan discharged home follow up with me in 6 weeks. Patient Condition at Discharge: Good Plan - Discharge Summary New Discharge Prescriptions: New Ibuprofen [Motrin] 600 mg PO Q6HR PRN #30 tab PRN Reason: Pain No Action Pnv,Calcium 72/Iron/Folic Acid [ Plus Tablet] 1 tab PO DAILY Discharge Medication List Pnv,Calcium 72/Iron/Folic Acid [ Plus Tablet] 1 tab PO DAILY 01/28/18 [ History] Ibuprofen [Motrin] 600 mg PO Q6HR PRN #30 tab 08/18/18 [Rx] Follow up Appointment(s)/Referral(s): Paulo Triplett DO [Doctor of Osteopathic Medicine] - 6 Weeks Activity/Diet/Wound Care/Special Instructions: No heavy lifting, limit stairs and driving, and pelvic rest. If any high temperatures, heavy bleeding, or severe pain call my office Discharge Disposition: HOME SELF-CARE
== END 2018-08-18 16:50 | disposition home or self-care (01) | DRG 775 ==
LOC: 4FBP 06:34
PROVIDERS: ADMIT Obstetrics & Gynecology; ATTEND Obstetrics & Gynecology
PROC: 00HU33Z Insertion of Infusion Device into Spinal Canal, Percutaneous Approach (ICD-10-PCS; principal; 2018-08-16)
PROC: 3E0R3NZ Introduction of Analgesics, Hypnotics, Sedatives into Spinal Canal, Percutaneous Approach (ICD-10-PCS; principal; 2018-08-16)
PROC: 10E0XZZ Delivery of Products of Conception, External Approach (ICD-10-PCS; principal; 2018-08-16)
PROC: 10907ZC Drainage of Amniotic Fluid, Therapeutic from Products of Conception, Via Natural or Artificial Opening (ICD-10-PCS; principal; 2018-08-16)
DX: O99.824 Streptococcus B carrier state complicating childbirth (principal); Z37.0 Single live birth; Z3A.39 39 weeks gestation of pregnancy; Z87.891 Personal history of nicotine dependence
CPT/HCPCS: 85025; 86850; 86900; 86901